=== PATIENT | female | born 1990 | race Caucasian/White ===

== ENCOUNTER 2017-05-18 22:25 | Emergency (ER) | payer MEDICAID ==
[2017-05-18 23:08] LABS: PLATELET COUNT 301 10^3/uL (150-400)
--- NOTE | 2017-05-18 23:09 | EDPHY ---
H & P Stated Complaint: L CP upon inspiration. Time Seen by Provider: 05/18/17 22:37 HPI/ROS: Chief Complaint: Chest pain HPI: 26-year-old woman who is been recovering from a flu-like illness for the last week started developing left upper chest pain this evening. Patient states that hurts to move. Hurts to cough. Hurts when she takes a deep breath. Cough has been mostly nonproductive. It came on gradually and did not occur after a sudden coughing spell. No falls or injuries. No central chest pain. No shortness of breath. Did have some fevers or chills earlier but does have since resolved. She does smoke and uses a Nuvaring for contraception. ROS: 10 point Review of Systems is negative except as noted in the HPI. PMH: Denies Social History: Positive smoking, occasional alcohol, occasional marijuana Family History: non-contributory Physical Exam: Gen: Awake, Alert, No Distress HEENT: Nose: no rhinorrhea Eyes: PERRLA, EOMI Mouth: Moist mucosa Neck: Supple, no JVD Chest: nontender, lungs clear to auscultation Heart: S1, S2 normal, no murmur Abd: Soft, non-tender, no guarding Back: no CVA tenderness, no midline tenderness Ext: no edema, non-tender Skin: no rash Neuro: CN II-XII intact, Sensation grossly intact, Strength 5/5 in bilateral upper and lower extremities - Personal History Current Tetanus/Diphtheria Vaccine: Unsure Current Tetanus Diphtheria and Acellular Pertussis (TDAP): Unsure - Medical/Surgical History Hx Asthma: No Hx Chronic Respiratory Disease: No Hx Diabetes: No Hx Cardiac Disease: No Hx Renal Disease: No Hx Cirrhosis: No Hx Alcoholism: No Hx HIV/AIDS: No Hx Splenectomy or Spleen Trauma: No Other PMH: Denies - Social History Smoking Status: Heavy smoker Constitutional: Initial Vital Signs Temperature (C) 36.6 C 05/18/17 22:27 Heart Rate 80 05/18/17 22:27 Respiratory Rate 17 05/18/17 22:27 Blood Pressure 136/81 H 05/18/17 22:27 O2 Sat (%) 99 05/18/17 22:27 O2 Delivery Mode Room Air Allergies/Adverse Reactions: No Known Allergies Allergy (Unverified 05/18/17 22:33) Home Medications: Medication Instructions Recorded NK [No Known Home Meds] 05/18/17 Medical Decision Making - Diagnostics Imaging Results: Imaging Impressions Chest X-Ray 05/18/17 22:43 Impression: Chest negative for acute abnormality. ED Course/Re-evaluation: 26-year-old woman presenting with pleuritic left-sided chest pain after recovering from upper respiratory infection. She does have a perc score of 1 with a negative Wells score. Will order a D-dimer as well as chest x-ray and reassess. Chest x-ray is normal. D-dimer is negative. Symptoms consistent with pleurisy secondary to infection. Remainder of her blood work is unremarkable. She is actually feeling better without any further treatment. She would like to go home and I think is appropriate. Oxygen levels are good. - Data Points Laboratory Results: Laboratory Results 05/18/17 23:00 05/18/17 23:00 05/18/17 05/18/17 05/18/17 23:00 23:00 23:00 WBC RBC Hgb Hct MCV MCH MCHC RDW Plt Count MPV Neut % (Auto) Lymph % (Auto) [place] % (Auto) Eos % (Auto) Baso % (Auto) Nucleat RBC Rel Count Absolute Neuts (auto) Absolute Lymphs (auto) Absolute Monos (auto) Absolute Eos (auto) Absolute Basos (auto) Absolute Nucleated RBC Immature Gran % Immature Gran # D-Dimer < 0.27 ug/mLFEU ug/mLFEU (0.00-0.50) Sodium 142 mEq/L mEq/L (135-145) Potassium 3.2 mEq/L L mEq/L (3.5-5.2) Chloride 105 mEq/L mEq/L (97-110) Carbon Dioxide 22 mEq/l mEq/l (22-31) Anion Gap 15 mEq/L mEq/L (8-16) BUN 7 mg/dL mg/dL (7-23) Creatinine 0.6 mg/dL mg/dL (0.6-1.0) Estimated GFR > 60 Glucose 89 mg/dL mg/dL (70-100) Calcium 9.8 mg/dL mg/dL (8.5-10.4) Beta HCG, Qual NEGATIVE 05/18/17 23:00 WBC 9.02 10^3/uL 10^3/uL (3.80-9.50) RBC 5.12 10^6/uL 10^6/uL (4.18-5.33) Hgb 14.8 g/dL g/dL (12.6-16.3) Hct 44.7 % % (38.0-47.0) MCV 87.3 fL fL (81.5-99.8) MCH 28.9 pg pg (27.9-34.1) MCHC 33.1 g/dL g/dL (32.4-36.7) RDW 13.6 % % (11.5-15.2) Plt Count 301 10^3/uL 10^3/uL (150-400) MPV 9.4 fL fL (8.7-11.7) Neut % (Auto) 67.1 % % (39.3-74.2) Lymph % (Auto) 28.8 % % (15.0-45.0) [place] % (Auto) 2.4 % L % (4.5-13.0) Eos % (Auto) 1.1 % % (0.6-7.6) Baso % (Auto) 0.3 % % (0.3-1.7) Nucleat RBC Rel Count 0.0 % % (0.0-0.2) Absolute Neuts (auto) 6.04 10^3/uL 10^3/uL (1.70-6.50) Absolute Lymphs (auto) 2.60 10^3/uL 10^3/uL (1.00-3.00) Absolute Monos (auto) 0.22 10^3/uL L 10^3/uL (0.30-0.80) Absolute Eos (auto) 0.10 10^3/uL 10^3/uL (0.03-0.40) Absolute Basos (auto) 0.03 10^3/uL 10^3/uL (0.02-0.10) Absolute Nucleated RBC 0.00 10^3/uL 10^3/uL (0-0.01) Immature Gran % 0.3 % % (0.0-1.1) Immature Gran # 0.03 10^3/uL 10^3/uL (0.00-0.10) D-Dimer Sodium Potassium Chloride Carbon Dioxide Anion Gap BUN Creatinine Estimated GFR Glucose Calcium Beta HCG, Qual Medications Given: Discontinued Medications Ketorolac Tromethamine (Toradol) 15 mg IVP EDNOW ONE Stop: 05/18/17 23:28 Last Admin: 05/18/17 23:48 Dose: Not Given Departure - Departure Disposition: Home, Routine, Self-Care Clinical Impression: Pleurisy Condition: Good Instructions: Pleurisy (ED) Additional Instructions: Follow up with primary care physician in 3-4 days if symptoms are not improving. Return to the emergency department for increasing pain, shortness of breath, fevers or chills, or any other concerns. Referrals: Marisol De Leon MD [Medical Doctor] - As per Instructions
[2017-05-18] MEDS: KETOROLAC 15 MG/1 ML SDV IVP ONE ×2 (23:35→23:48)
[2017-05-19 00:31] VITALS: BP 137/80; PULSE 77; RESP 16; TEMP 97.5; O2SAT 97
== END 2017-05-19 00:32 | disposition home or self-care (01) ==
DX: R09.1 Pleurisy (principal); F17.200 Nicotine dependence, unspecified, uncomplicated
CPT/HCPCS: J1885